=== PATIENT | female | born 1950 | race Asian ===

== ENCOUNTER → 2020-04-25 08:27 | Outpatient (CLI) | payer MEDICARE, OTHER, SELFPAY ==
--- NOTE | 2020-04-25 08:34 | DI.MRI.S_ITS ---
PROCEDURE: MR SHOULDER LT WO CON INDICATIONS: Strain of muscle(s) and tendon(s). LEFT TECHNIQUE: Noncontrast oblique coronal T2 fast spin echo with fat saturation, oblique sagittal T1 spin echo and T2 fast spin echo with fat saturation, axial T1 spin echo and T2 fast spin echo with fat saturation through the shoulder. COMPARISON: None. FINDINGS: Image quality: Mildly compromised by patient motion despite repeat sequences being acquired. Diagnostic information is obtained. Rotator cuff: There is full-thickness tearing of the supraspinatus tendon and the anterior fibers of the infraspinatus tendon measuring approximately 1.7 cm in anterior-posterior dimension with approximately 1.3 cm of proximal tendon retraction. There is delamination and further retraction of the articular sided fibers measuring up to 2.7 cm. There is partial articular sided tearing of the adjacent portion of the infraspinatus tendon fibers. There is no significant supraspinatus or infraspinatus muscle atrophy. The teres minor tendon is intact. There is mild subscapularis tendinosis. Bones and bursae: There is no acute trabecular bone injury. Chronic traction cystic changes are seen at the posterosuperior humeral head as well as the greater and lesser tuberosities near the rotator cuff tendon insertions. Mild degenerative spurring is seen in the glenoid rim. The moderate acromioclavicular degenerative changes are seen with small periarticular osteophytes and subchondral cystic changes. A small glenohumeral joint effusion communicates with the subacromial/subdeltoid bursa. Capsule and soft tissues: No displaced labral tear is seen, although evaluation is mildly compromised by patient motion. The biceps long head tendon is intact. There is partial effacement of the fat in the rotator interval. The inferior glenohumeral ligament is normal in thickness. Mild edema at the superficial aspect of the lateral belly of the deltoid muscle may be related to a low-grade strain or recent intramuscular injection. IMPRESSION: 1. Full-thickness tearing of the supraspinatus tendon and the anterior fibers of the infraspinatus tendon measuring 1.7 cm in anterior-posterior dimension. There is 1.3 cm of proximal tendon retraction at the bursal surface as well as delamination and further retraction of the articular sided fibers measuring up to 2.7 cm. Low-grade partial articular sided tearing of the adjacent infraspinatus tendon fibers are seen. 2. Mild subscapularis tendinosis. 3. Moderate acromioclavicular joint osteoarthrosis. 4. Small glenohumeral effusion communicates with the subacromial/subdeltoid bursa. Dictated by: Donn Salinas M.D. on 04/25/2020 at 10:19 Approved by: Donn Salinas M.D. on 04/25/2020 at 10:29
== END ==
PROVIDERS: PCP Physician Assistant; Referring Provider Family Medicine; Visit Provider Family Medicine
DX: S46.012D Strain of muscle(s) and tendon(s) of the rotator cuff of left shoulder, subsequent encounter (principal); M19.012 Primary osteoarthritis, left shoulder; M25.412 Effusion, left shoulder
CPT/HCPCS: 73221

== ENCOUNTER → 2020-08-08 08:48 | Outpatient (CLI) | payer MEDICARE, OTHER, SELFPAY | PROVIDERS: PCP Physician Assistant; Referring Provider Physician Assistant; Visit Provider Physician Assistant | DX: Z01.818 Encounter for other preprocedural examination (principal); M75.121 Complete rotator cuff tear or rupture of right shoulder, not specified as traumatic | CPT/HCPCS: 93005; 93010 ==

== ENCOUNTER → 2020-08-29 10:30 | Outpatient (CLI) | payer MEDICARE, OTHER, SELFPAY ==
--- NOTE | 2020-08-29 10:33 | DI.RAD.S_ITS ---
PROCEDURE: XR HIP W PEL IF DONE [facility] MIN 4V INDICATIONS: PAIN TECHNIQUE: AP pelvis with lateral view(s) of the bilateral hip(s). COMPARISON: None. FINDINGS: Bones: No fractures or dislocations. Symmetric appearing bilateral mild hip joint osteoarthritic changes are seen with joint space narrowing and subchondral sclerosis. No evidence of avascular necrosis of femoral head. Pelvic ring appears intact. No suspicious bony lesions. Soft tissues: The visualized bowel gas pattern is normal. No suspicious soft tissue calcifications. IMPRESSION: Symmetric appearing mild bilateral hip joint osteoarthritis. No fracture or dislocation. No evidence of avascular necrosis. Dictated by: Jose Alejandro Blandon M.D. on 08/29/2020 at 11:24 Approved by: Jose Alejandro Blandon M.D. on 08/29/2020 at 11:24
== END ==
PROVIDERS: PCP Physician Assistant; Referring Provider Anesthesiology Pain Medicine; Visit Provider Anesthesiology Pain Medicine
DX: M25.552 Pain in left hip (principal); M25.551 Pain in right hip; M16.0 Bilateral primary osteoarthritis of hip
CPT/HCPCS: 73501